=== PATIENT | female | born 1950 | race African-American/Black ===

== ENCOUNTER 2018-06-12 18:55 | Emergency (ER) | payer MEDICARE ==
[2018-06-12 19:53] LABS: #Basophils 0.1 thou/uL (0.0-0.2); #Eosinphils 0.8 thou/uL (0.0-0.7); #Lymphocytes 1.8 thou/uL (1.20-3.40); #Monocytes 0.6 thou/uL (0.11-0.59); #Neutrophils 5.5 thou/uL (1.40-6.50); %Basophils 0.8 % (0.0-1.0); %Eosinophils 9.3 % (0.0-10.0); %Lymphocytes 20.1 % (21.0-51.0); %Monocytes 6.9 % (0.0-10.0); Mean Corpuscular HGB CONC 32.2 g/dL (32.0-36.0); Mean Corpuscular Hemoglobin 24.5 pg (27.0-31.0); Mean Corpuscular Volume 76.1 fL (78.0-98.0); Platelet Count 269 thou/uL (130-400); RBC Distribution Width 13.4 % (11.5-14.5); Red Blood Cell (RBC) Count 4.89 mill/uL (4.20-5.40); White Blood Cell (WBC) Count 8.8 thou/uL (4.8-10.8)
--- NOTE | 2018-06-12 19:54 | CT ---
NONCONTRAST HEAD CT: 06/12/18 HISTORY: Right facial numbness. Evaluate for stroke. COMPARISON: 08/31/17 TECHNIQUE: Noncontrast head CT is performed from skull base to skull vertex. FINDINGS: No parenchymal hemorrhage. No extra-axial hematoma. No midline shift. Basilar cisterns are patent. Age appropriate brain volume. Cortical george-white matter differentiation is preserved. No hydrocephal us. The calvarium is intact. Adequate aeration of the sinuses and mastoid air cells. IMPRESSION: No acute intracranial process. Results of the study discussed with Dr. Rey 06/12/18 at 7:30 p.m. Code CR POS: PATRIC
[2018-06-12 19:58] LABS: PTT 29.2 SEC (22.9-36.1); Prothrombin Time 13.4 SEC (12.0-14.7)
[2018-06-12 20:04] LABS: ALT (SGPT) 11 U/L (8-55); AST (SGOT) 16 U/L (5-34); Alkaline Phosphatase 110 U/L (40-150); Anion Gap 17 mmol/L (10-20); BUN (Urea Nitrogen) 24 mg/dL (9.8-20.1); Bilirubin, Total 0.5 mg/dL (0.2-1.2); Calc. Creatinine Clearance 0 mL/min (70-130); Calcium 9.7 mg/dL (7.8-10.44); Carbon Dioxide 20 mmol/L (23-31); Chloride 105 mmol/L (98-107); Estimated GFR-MDRD 56; Globulin 3.1 g/dL (2.4-3.5); Glucose 81 mg/dL (80-115); Protein, Total 7.1 g/dL (6.0-8.3); Sodium 138 mmol/L (136-145)
== END 2018-06-12 20:02 | disposition short-term general hospital (02) ==
LOC: NAV ERS 18:55
DX: I63.9 Cerebral infarction, unspecified (principal); K04.7 Periapical abscess without sinus; E78.5 Hyperlipidemia, unspecified; I10 Essential (primary) hypertension; Z79.899 Other long term (current) drug therapy; Z79.82 Long term (current) use of aspirin
CPT/HCPCS: 36416; 70450; 80053; 85025; 85610; 85730; 93005

== ENCOUNTER 2021-12-02 04:18 | Emergency (ER) | payer MEDICARE ==
[2021-12-02 05:50] LABS: Bilirubin Negative (Negative); Blood, Urine Negative (Negative); Clarity Clear (Clear); Glucose, Urine (Dipstick) Negative (Negative); Ketone, Urine Negative (Negative); Leukocyte Negative (Negative); Nitrite Negative (Negative); Protein, Urine (Dipstick) Negative (Neg-Trace); Specific Gravity, Urine 1.015 (1.005-1.030); Urobilinogen 0.2 mg/dL (Less than 2)
[2021-12-02] MEDS ORDERED: Fentanyl 100 MCG/2 ML VIAL ONE (05:59)
[2021-12-02 06:03] LABS: ALT (SGPT) 31 U/L (8-55); AST (SGOT) 34 U/L (5-34); Albumin 4.4 g/dL (3.4-4.8); Alkaline Phosphatase 138 U/L (40-110); Anion Gap 16 mmol/L (10-20); BUN (Urea Nitrogen) 10 mg/dL (9.8-20.1); Bilirubin, Total 0.3 mg/dL (0.2-1.2); Calc. Creatinine Clearance 0 mL/min (70-130); Carbon Dioxide 20 mmol/L (23-31); Chloride 105 mmol/L (98-107); Globulin 3.3 g/dL (2.4-3.5); Glucose 97 mg/dL (83-110); Lipase 35 U/L (8-78); Potassium 4.4 mmol/L (3.5-5.1); Protein, Total 7.7 g/dL (5.8-8.1); Sodium 137 mmol/L (136-145)
[2021-12-02 06:09] LABS: #Basophils 0.1 thou/uL (0.0-0.2); #Eosinphils 0.3 thou/uL (0.0-0.7); #Lymphocytes 1.2 thou/uL (1.20-3.40); #Monocytes 0.4 thou/uL (0.11-0.59); #Neutrophils 3.6 thou/uL (1.40-6.50); %Basophils 1.8 % (0.0-1.0); %Eosinophils 5.9 % (0.0-10.0); %Lymphocytes 21.8 % (21.0-51.0); %Monocytes 6.5 % (0.0-10.0); Hemoglobin 14.5 g/dL (12.0-16.0); Mean Corpuscular HGB CONC 31.8 g/dL (32.0-36.0); Mean Corpuscular Hemoglobin 25.1 pg (27.0-31.0); Mean Corpuscular Volume 78.7 fL (78.0-98.0); Mean Platelet Volume 6.7 fL (7.4-10.4); Platelet Count 334 thou/uL (130-400); RBC Distribution Width 13.2 % (11.5-14.5); White Blood Cell (WBC) Count 5.6 thou/uL (4.8-10.8)
[2021-12-02] MEDS ORDERED: Lidocaine 4% Cream 5 GM TUBE w/ Tegaderm ONE (08:03)
[2021-12-02] MEDS ORDERED: Iopamidol 370 76% 100 ML VIAL ONE (09:00)
== END 2021-12-02 08:10 | disposition home or self-care (01) ==
LOC: NAV ERS 04:18
DX: K59.00 Constipation, unspecified (principal); M54.50 Low back pain, unspecified; I10 Essential (primary) hypertension; E78.5 Hyperlipidemia, unspecified; E78.00 Pure hypercholesterolemia, unspecified; Z86.73 Personal history of transient ischemic attack (TIA), and cerebral infarction without residual deficits; Z79.82 Long term (current) use of aspirin; Z79.899 Other long term (current) drug therapy
CPT/HCPCS: 74177; 80053; 81003; 83605; 83690; 85025; 96365; 96375; J3010; Q9967

== ENCOUNTER 2022-08-16 05:42 | Emergency (ER) | payer MEDICARE ==
[2022-08-16] MEDS ORDERED: Ondansetron PF 4 MG/2 ML Vial ONE (06:00)
[2022-08-16] MEDS ORDERED: Morphine 4 MG/ML VIAL ONE (06:25)
[2022-08-16] MEDS ORDERED: Sodium Chloride 0.9% 1,000 ML ONE (06:29)
[2022-08-16 06:40] LABS: ALT (SGPT) 27 U/L (8-55); AST (SGOT) 27 U/L (5-34); Albumin 4.2 g/dL (3.4-4.8); Alkaline Phosphatase 105 U/L (40-110); Anion Gap 18 mmol/L (10-20); BUN (Urea Nitrogen) 11 mg/dL (9.8-20.1); Bilirubin, Total 0.5 mg/dL (0.2-1.2); Calc. Creatinine Clearance 0 mL/min (70-130); Calcium 9.6 mg/dL (7.8-10.44); Carbon Dioxide 22 mmol/L (23-31); Chloride 106 mmol/L (98-107); Estimated GFR 72; Globulin 2.7 g/dL (2.4-3.5); Glucose 92 mg/dL (83-110); Lipase 44 U/L (8-78); Potassium 3.9 mmol/L (3.5-5.1); Protein, Total 6.9 g/dL (5.8-8.1); Sodium 142 mmol/L (136-145)
[2022-08-16 07:11] LABS: #Basophils 0.1 thou/uL (0.0-0.2); #Eosinphils 0.5 thou/uL (0.0-0.7); #Lymphocytes 1.9 thou/uL (1.20-3.40); #Monocytes 0.3 thou/uL (0.11-0.59); %Basophils 1.6 % (0.0-1.0); %Eosinophils 7.9 % (0.0-10.0); %Lymphocytes 27.8 % (21.0-51.0); %Monocytes 3.9 % (0.0-10.0); %Neutrophils 58.9 % (42.0-75.0); Hemoglobin 14.6 g/dL (12.0-16.0); Mean Corpuscular Hemoglobin 24.9 pg (27.0-31.0); Mean Corpuscular Volume 80.3 fL (78.0-98.0); Mean Platelet Volume 6.7 fL (7.4-10.4); Platelet Count 295 thou/uL (130-400); Red Blood Cell (RBC) Count 5.86 mill/uL (4.20-5.40); White Blood Cell (WBC) Count 6.9 thou/uL (4.8-10.8)
[2022-08-16 07:53] LABS: Bilirubin Negative (Negative); Blood, Urine Negative (Negative); Clarity Clear (Clear); Glucose, Urine (Dipstick) Negative (Negative); Ketone, Urine Negative (Negative); Leukocyte Negative (Negative); Nitrite Negative (Negative); Protein, Urine (Dipstick) Negative (Neg-Trace); Urobilinogen 0.2 mg/dL (Less than 2); pH, Urine 5.5 (5.0-9.0)
[2022-08-16 07:58] LABS: Specific Gravity, Urine 1.005 (1.002-1.036)
[2022-08-16] MEDS ORDERED: Iopamidol 370 76% 100 ML VIAL ONE (09:00)
== END 2022-08-16 08:44 | disposition home or self-care (01) ==
LOC: NAV ERS 05:42
DX: K29.00 Acute gastritis without bleeding (principal); E78.00 Pure hypercholesterolemia, unspecified; I10 Essential (primary) hypertension; Z79.82 Long term (current) use of aspirin; Z79.899 Other long term (current) drug therapy
CPT/HCPCS: 74177; 80053; 81003; 83690; 85025; 96361; 96374; 96375; J2270; J2405; J7050; Q9967

== ENCOUNTER 2022-11-28 20:44 | Emergency (ER) | payer MEDICARE ==
[2022-11-28] MEDS ORDERED: Ondansetron ODT 4 MG TAB ONE (21:12)
[2022-11-28] MEDS ORDERED: Promethazine HCl 25 MG/ML VIAL ONE (22:02)
[2022-11-28 22:41] LABS: #Eosinphils 0.1 thou/uL (0.0-0.7); #Lymphocytes 0.5 thou/uL (1.20-3.40); #Monocytes 0.6 thou/uL (0.11-0.59); #Neutrophils 8.8 thou/uL (1.40-6.50); %Basophils 0.3 % (0.0-1.0); %Lymphocytes 5.3 % (21.0-51.0); %Monocytes 5.5 % (0.0-10.0); %Neutrophils 87.9 % (42.0-75.0); Hemoglobin 14.6 g/dL (12.0-16.0); Mean Corpuscular HGB CONC 31.8 g/dL (32.0-36.0); Mean Corpuscular Hemoglobin 26.8 pg (27.0-31.0); Mean Corpuscular Volume 84.2 fl (78.0-98.0); Mean Platelet Volume 6.9 fL (7.4-10.4); Platelet Count 287 10x3/uL (130-400); RBC Distribution Width 14.8 % (11.5-14.5); Red Blood Cell (RBC) Count 5.45 mill/uL (4.20-5.40)
[2022-11-28 22:54] LABS: ALT (SGPT) 32 U/L (8-55); AST (SGOT) 29 U/L (5-34); Albumin 4.2 g/dL (3.4-4.8); Alkaline Phosphatase 101 U/L (40-110); Anion Gap 15 mmol/L (10-20); BUN (Urea Nitrogen) 19 mg/dL (9.8-20.1); Bilirubin, Total 0.5 mg/dL (0.2-1.2); Calc. Creatinine Clearance 0 mL/min (70-130); Calcium 9.6 mg/dL (7.8-10.44); Carbon Dioxide 20 mmol/L (23-31); Chloride 112 mmol/L (98-107); Estimated GFR 77; Globulin 2.8 g/dL (2.4-3.5); Glucose 98 mg/dL (83-110); Lipase 87 U/L (8-78); Potassium 3.6 mmol/L (3.5-5.1); Sodium 143 mmol/L (136-145)
[2022-11-28 23:55] LABS: Bilirubin Negative (Negative); Blood, Urine Negative (Negative); Clarity Clear (Clear); Glucose, Urine (Dipstick) Negative (Negative); Ketone, Urine Negative (Negative); Leukocyte Negative (Negative); Nitrite Negative (Negative); Protein, Urine (Dipstick) Negative (Neg-Trace); Urobilinogen 0.2 mg/dL (Less than 2)
[2022-11-29] MEDS ORDERED: Dicyclomine 20 MG TAB ONE (01:16)
[2022-11-29] MEDS ORDERED: Acetaminophen 500 MG TAB ONE (01:16)
== END 2022-11-29 02:22 | disposition home or self-care (01) ==
LOC: NAV ERS 20:44
DX: A05.9 Bacterial foodborne intoxication, unspecified (principal); K52.9 Noninfective gastroenteritis and colitis, unspecified; E78.00 Pure hypercholesterolemia, unspecified; I10 Essential (primary) hypertension
CPT/HCPCS: 36415; 74022; 80053; 81003; 83690; 85025; 93005; 96372; J2550; Q0162

== ENCOUNTER 2023-02-22 09:45 | Emergency (ER) | payer MEDICARE ==
[2023-02-22] MEDS ORDERED: Morphine 2 MG/ML VIAL ONE (10:38)
[2023-02-22] MEDS ORDERED: Ondansetron ODT 4 MG TAB ONE (11:05)
== END 2023-02-22 12:51 | disposition home or self-care (01) ==
LOC: NAV ERS 09:45
DX: S82.61XA Displaced fracture of lateral malleolus of right fibula, initial encounter for closed fracture (principal); I10 Essential (primary) hypertension; E03.9 Hypothyroidism, unspecified; E78.00 Pure hypercholesterolemia, unspecified; W19.XXXA Unspecified fall, initial encounter
CPT/HCPCS: 96372; J2272; Q0162

== ENCOUNTER 2023-08-17 14:29 | Emergency (ER) | payer MEDICARE ==
[2023-08-17] MEDS ORDERED: Promethazine HCl 25 MG/ML VIAL ONE (14:45)
[2023-08-17] MEDS ORDERED: Famotidine/PF 20 mg/2ml Vial ONE (14:45)
[2023-08-17] MEDS ORDERED: Sodium Chloride 0.9% 1,000 ML ONE (14:45)
[2023-08-17 15:00] LABS: #Basophils 0.1 thou/uL (0.0-0.2); #Eosinphils 0.3 thou/uL (0.0-0.7); #Lymphocytes 2.1 thou/uL (1.20-3.40); #Monocytes 0.7 thou/uL (0.11-0.59); #Neutrophils 9.2 thou/uL (1.40-6.50); %Basophils 0.9 % (0.0-1.0); %Eosinophils 2.7 % (0.0-10.0); %Monocytes 5.7 % (0.0-10.0); %Neutrophils 73.7 % (42.0-75.0); Hematocrit 45.4 % (36.0-47.0); Hemoglobin 14.5 g/dL (12.0-16.0); Mean Corpuscular HGB CONC 31.9 g/dL (32.0-36.0); Mean Corpuscular Hemoglobin 25.9 pg (27.0-31.0); Mean Corpuscular Volume 81.1 fl (78.0-98.0); Mean Platelet Volume 6.7 fL (7.4-10.4); Platelet Count 333 10x3/uL (130-400); RBC Distribution Width 13.5 % (11.5-14.5); Red Blood Cell (RBC) Count 5.59 mill/uL (4.20-5.40); White Blood Cell (WBC) Count 12.5 10x3/uL (4.8-10.8)
[2023-08-17 15:25] LABS: ALT (SGPT) 17 U/L (8-55); AST (SGOT) 22 U/L (5-34); Albumin 4.8 g/dL (3.4-4.8); Alkaline Phosphatase 146 U/L (40-110); Anion Gap 17 mmol/L (10-20); BUN (Urea Nitrogen) 15 mg/dL (9.8-20.1); Bilirubin, Total 0.3 mg/dL (0.2-1.2); Calc. Creatinine Clearance 0 mL/min (70-130); Calcium 10.5 mg/dL (7.8-10.44); Carbon Dioxide 21 mmol/L (23-31); Chloride 110 mmol/L (98-107); Estimated GFR 60; Globulin 3.2 g/dL (2.4-3.5); Glucose 137 mg/dL (83-110); Lipase 50 U/L (8-78); Potassium 3.5 mmol/L (3.5-5.1); Sodium 144 mmol/L (136-145); Troponin I Less than 0.010 ng/mL (< 0.028)
[2023-08-17 15:30] LABS: Acetaminophen Less than 10 mcg/mL (10.0-30.0); Alcohol Less than 10.0 mg/dL (Less than 10); Salicylate Less than 8.0 mg/dL (15.0-30.0)
[2023-08-17] MEDS ORDERED: Dicyclomine 20 MG/2 ML VIAL ONE (15:46)
[2023-08-17] MEDS ORDERED: Ondansetron PF 4 MG/2 ML Vial ONE (16:03)
[2023-08-17] MEDS ORDERED: Lorazepam 2 MG/ML VIAL ONE (16:24)
[2023-08-17 17:37] LABS: Amphetamine Not Detected (NotDetected); Barbiturates Screen Not Detected (NotDetected); Benzodiazepine Screen Not Detected (NotDetected); Cocaine Metabolite Screen Not Detected (NotDetected); Methadone Not Detected (NotDetected); Methamphetamine Not Detected (NotDetected); Oxycodone Screen Not Detected (NotDetected); Phencyclidine (PCP) Not Detected (NotDetected); THC/Cannabinoid Screen Not Detected (NotDetected); Tricyclic Screen Not Detected (NotDetected)
[2023-08-17 17:38] LABS: Opiate Screen Detected (NotDetected)
[2023-08-17 19:05] LABS: Lactic Acid 1.7 mmol/L (0.5-2.2)
[2023-08-17] MEDS ORDERED: hydrALAZINE 20 MG/ML VIAL ONE ×2 (19:12→20:09)
== END 2023-08-17 21:06 | disposition short-term general hospital (02) ==
LOC: NAV ERS 14:29
DX: R11.2 Nausea with vomiting, unspecified (principal); R45.1 Restlessness and agitation; I10 Essential (primary) hypertension; R10.9 Unspecified abdominal pain; E03.9 Hypothyroidism, unspecified; E78.00 Pure hypercholesterolemia, unspecified; Z79.899 Other long term (current) drug therapy
CPT/HCPCS: 51701; 70450; 74176; 80053; 80306; 80307; 83605; 83690; 83880; 84484; 85025; 93005; 94760; 96361; 96365; 96372; 96375; 96376; J0360; J2060; J2405; J2550; J7050; S0028

== ENCOUNTER 2024-12-30 09:58 | Emergency (ER) | payer MEDICARE | END 2024-12-30 11:38 | disposition home or self-care (01) | LOC: NAV ERS 09:58 | DX: B37.0 Candidal stomatitis (principal); I10 Essential (primary) hypertension; E03.9 Hypothyroidism, unspecified; E78.00 Pure hypercholesterolemia, unspecified; Z79.899 Other long term (current) drug therapy | CPT/HCPCS: 87081; 87430; 99283 ==